=== PATIENT | female | born 1995 | race African-American/Black ===

== ENCOUNTER → 2017-03-29 | Outpatient (CLI) | payer OTHER ==
[~2017-03-29] MED LIST: GASTROGRAFIN SOLUTION 30ML (Q9963) As Ordered; ISOVUE-370 76% 100ML VIAL (Q9967) As Ordered
== END ==
LOC: M RAD 13:20
DX: R10.814 Left lower quadrant abdominal tenderness (principal)
CPT/HCPCS: Q9963

== ENCOUNTER 2017-05-08 06:41 | Day surgery (SDC) | payer OTHER ==
[2017-05-08] MEDS: NS 500 ML IV (06:57)
[2017-05-08] MEDS ORDERED: PROPOFOL 200 MG/20 ML VIAL As Ordered (07:36)
[2017-05-08] MEDS ORDERED: LIDOCAINE 2% INJ 100 MG/5 ML SDV (FOR ANES.) As Ordered (07:36)
== END 2017-05-08 08:48 | disposition home or self-care (01) ==
LOC: M OPP 06:41
DX: K62.5 Hemorrhage of anus and rectum (principal); R10.32 Left lower quadrant pain; D12.7 Benign neoplasm of rectosigmoid junction; K63.89 Other specified diseases of intestine; K52.89 Other specified noninfective gastroenteritis and colitis; D64.9 Anemia, unspecified; R06.02 Shortness of breath; Z88.0 Allergy status to penicillin
CPT/HCPCS: 45380

== ENCOUNTER → 2017-07-04 | Outpatient (CLI) | payer OTHER ==
[2017-07-04 16:44] LABS: BASO % 0.7 % (0.0-1.0); EOS # 0.1 10^3/uL (0.0-0.50); EOS % 1.4 % (0.0-3.0); HEMATOCRIT 30.9 % (36.0-47.0); HEMOGLOBIN 9.1 g/dl (12.0-15.5); IMMATURE GRANULOCYTE % 0.2 % (0-3.0); LYMPH # 2.1 10^3/uL (1.5-6.5); MEAN CORPUSCULAR HEMOGLOBIN 20.4 pg (27.0-33.0); MEAN CORPUSCULAR HGB CONC 29.4 g/dl (32.0-36.5); MEAN CORPUSCULAR VOLUME 69.3 fl (80.0-96.0); MONO # 0.4 10^3/uL (0.0-0.8); MONO % 9.6 % (0.0-5.0); NEUTROPHILS # 1.5 10^3/uL (1.8-7.7); NEUTROPHILS % 37.1 % (36.0-66.0); PLATELET COUNT, AUTOMATED 267 10^3/uL (150-450); RED BLOOD COUNT 4.46 10^6/uL (4.00-5.40); RED CELL DISTRIBUTION WIDTH 18.6 % (11.5-14.5); WHITE BLOOD COUNT 4.2 10^3/uL (4.0-10.0)
[2017-07-04 17:11] LABS: C REACTIVE PROTEIN QUANTITATIV < 0.30 MG/DL (0.00-0.30); FERRITIN 5 NG/ML (8-252); IRON (FE) 25 UG/DL (50-170); PERCENT SATURATION 5.4 % (13.2-45.0); TOTAL IRON BINDING CAPACITY 467 UG/DL (250-450)
[2017-07-04 17:58] LABS: ERYTHROCYTE SEDIMENTATION RATE 22 mm/hr (0-20)
[2017-07-11 00:07] LABS: ANTI-SACCHAROMYCES CEREV. IgA <20.0 Units (0.0-24.9); ANTI-SACCHAROMYCES CEREV. IgG <20.0 Units (0.0-24.9); CYTOPLASMIC NEUTROP AB ANCA-C <1:20 titer (Neg:<1:20); PERINUCLEAR AB ANCA-P <1:20 titer (Neg:<1:20)
== END ==
LOC: M LAB 16:01
DX: K51.811 Other ulcerative colitis with rectal bleeding (principal)
CPT/HCPCS: 83550

== ENCOUNTER → 2017-11-28 | Outpatient (REF) | payer OTHER | LOC: M SFHCLERA 20:21 | DX: R10.31 Right lower quadrant pain (principal) ==

== ENCOUNTER → 2017-11-28 | Outpatient (CLI) | payer OTHER | LOC: M LRY 16:30 | DX: K59.00 Constipation, unspecified (principal) | CPT/HCPCS: 74018; 87086 ==

== ENCOUNTER 2017-12-30 11:17 | Emergency (ER) | payer OTHER ==
[2017-12-30 12:07] LABS: BASO % 0.7 % (0.0-1.0); EOS # 0.1 10^3/uL (0.0-0.50); EOS % 1.5 % (0.0-3.0); HEMATOCRIT 31.6 % (36.0-47.0); HEMOGLOBIN 9.8 g/dl (12.0-15.5); IMMATURE GRANULOCYTE % 0.2 % (0-3.0); LYMPH # 1.8 10^3/uL (1.5-6.5); LYMPH % 39.6 % (24.0-44.0); MEAN CORPUSCULAR HEMOGLOBIN 22.9 pg (27.0-33.0); MEAN CORPUSCULAR VOLUME 73.8 fl (80.0-96.0); MONO # 0.4 10^3/uL (0.0-0.8); MONO % 8.8 % (0.0-5.0); NEUTROPHILS # 2.3 10^3/uL (1.8-7.7); NEUTROPHILS % 49.2 % (36.0-66.0); PLATELET COUNT, AUTOMATED 296 10^3/uL (150-450); RED BLOOD COUNT 4.28 10^6/uL (4.00-5.40); RED CELL DISTRIBUTION WIDTH 18.6 % (11.5-14.5); WHITE BLOOD COUNT 4.6 10^3/uL (4.0-10.0)
[2017-12-30 12:36] LABS: ALBUMIN 3.8 GM/DL (3.2-5.2); ALBUMIN/GLOBULIN RATIO 0.88 (1.00-1.93); ALKALINE PHOSPHATASE 53 U/L (45-117); ALT/SGPT 17 U/L (12-78); ANION GAP 7 MEQ/L (8-16); AST/SGOT 19 U/L (7-37); BILIRUBIN,TOTAL 0.5 MG/DL (0.2-1.0); BLOOD UREA NITROGEN 11 MG/DL (7-18); CALCIUM LEVEL 8.3 MG/DL (8.5-10.1); CARBON DIOXIDE LEVEL 23 MEQ/L (21-32); CHLORIDE LEVEL 108 MEQ/L (98-107); CREATININE FOR GFR 0.76 MG/DL (0.55-1.30); GLUCOSE, FASTING 88 MG/DL (70-100); POTASSIUM SERUM 3.8 MEQ/L (3.5-5.1); SODIUM LEVEL 138 MEQ/L (136-145); TOTAL PROTEIN 8.1 GM/DL (6.4-8.2)
[2017-12-30] MEDS: METOCLOPRAMIDE INJ 10MG/2ML VIAL (J2765) IV (12:37)
[2017-12-30] MEDS: NS 1,000 ML IV (12:38)
[2017-12-30 13:08] LABS: HCG, SERUM QUANTITATIVE 1055 MIU/ML
[2017-12-30 14:32] LABS: KETONE, URINE AUTO RFX NEGATIVE (NEGATIVE); LEUKOCYTE ESTERASE UR AUTO RFX NEGATIVE (NEGATIVE); MUCUS, URINE RFX SMALL (NEGATIVE); NITRITE, URINE AUTO RFX NEGATIVE (NEGATIVE); RBC, URINE AUTO RFX 0 /HPF (0-3); SPECIFIC GRAVITY UR AUTO RFX 1.027 (1.002-1.035); SQUAM EPITHELIAL CELL UR AURFX 2 /HPF (0-6); WBC, URINE AUTO RFX 0 /HPF (0-3)
== END 2017-12-30 15:09 | disposition home or self-care (01) ==
LOC: M ED 11:17
DX: Z32.01 Encounter for pregnancy test, result positive (principal); R10.2 Pelvic and perineal pain; N93.9 Abnormal uterine and vaginal bleeding, unspecified; K51.90 Ulcerative colitis, unspecified, without complications; Z88.0 Allergy status to penicillin; Z79.899 Other long term (current) drug therapy
CPT/HCPCS: J2765

== ENCOUNTER 2018-02-19 20:13 | Emergency (ER) | payer OTHER ==
[~2018-02-19] VITALS: Ht 167.6 cm; Wt 56.8 kg
[~2018-02-19 20:13] MED LIST changes: -GASTROGRAFIN SOLUTION 30ML (Q9963) As Ordered; -ISOVUE-370 76% 100ML VIAL (Q9967) As Ordered; +MACR100C43 PO; +MESA50SU PR; +REGL10TA6 PO
[2018-02-19] MEDS ORDERED: KETOROLAC 30 MG/ML VIAL (J1885) IV ONE (21:00)
[2018-02-19] MEDS ORDERED: NS 1,000 ML IV ONE (21:00)
[2018-02-19 21:35] LABS: BASO % 0.6 % (0.0-1.0); EOS # 0.2 10^3/uL (0.0-0.50); EOS % 2.7 % (0.0-3.0); HEMATOCRIT 32.9 % (36.0-47.0); HEMOGLOBIN 10.2 g/dl (12.0-15.5); LYMPH # 2.8 10^3/uL (1.5-6.5); LYMPH % 45.5 % (24.0-44.0); MEAN CORPUSCULAR HEMOGLOBIN 23.9 pg (27.0-33.0); MEAN CORPUSCULAR VOLUME 77.2 fl (80.0-96.0); MONO # 0.7 10^3/uL (0.0-0.8); MONO % 11.9 % (0.0-5.0); NEUTROPHILS # 2.4 10^3/uL (1.8-7.7); NEUTROPHILS % 39.1 % (36.0-66.0); PLATELET COUNT, AUTOMATED 270 10^3/uL (150-450); RED BLOOD COUNT 4.26 10^6/uL (4.00-5.40); WHITE BLOOD COUNT 6.2 10^3/uL (4.0-10.0)
[2018-02-19 21:59] LABS: ALBUMIN 3.7 GM/DL (3.2-5.2); ALT/SGPT 18 U/L (12-78); BILIRUBIN,DIRECT < 0.1 MG/DL (0.0-0.2); BILIRUBIN,TOTAL 0.3 MG/DL (0.2-1.0); BLOOD UREA NITROGEN 11 MG/DL (7-18); CARBON DIOXIDE LEVEL 25 MEQ/L (21-32); CHLORIDE LEVEL 108 MEQ/L (98-107); CREATININE FOR GFR 0.74 MG/DL (0.55-1.30); GLUCOSE, FASTING 88 MG/DL (70-100); LIPASE 120 U/L (73-393); POTASSIUM SERUM 4.1 MEQ/L (3.5-5.1); SODIUM LEVEL 140 MEQ/L (136-145); TOTAL PROTEIN 7.6 GM/DL (6.4-8.2)
[2018-02-19 22:17] LABS: HCG, SERUM QUALITATIVE POSITIVE (NEGATIVE)
[2018-02-20 00:01] VITALS: BP 122/63
--- NOTE | 2018-02-20 00:02 | REPVR ---
EXAM: US First Trimester, Transabdominal EXAM DATE/TIME: 02/19/2018 10:51 PM CLINICAL HISTORY: 22 years old, female; Pain; complicated by abdominal or pelvic pain; Generalized abdominal pain; First trimester; Gestational age or lmp: 4 w 2 d; ; Additional info: Vaginal bleeding, pelvic pain x 2-3 days, hcg 13 TECHNIQUE: Real-time transabdominal obstetrical ultrasound of the maternal pelvis and a first trimester , less than 14 weeks 0 days, with image documentation. COMPARISON: No relevant prior studies available. FINDINGS: GESTATION: See below. MATERNAL: Uterus: Uterus measures 7.7 x 4.2 x 4.6 cm. Endometrial echocomplex 10.1 mm. No gestational sac demonstrated. Cervix: Unremarkable. Right adnexa: Right ovary measures 4 point 2 x 2 0.7 x 2.3 cm. RI 0.59. 2.8 x 1.9 x 1.9 cm hemorrhagic cyst Left adnexa: Left ovary measures 3.1 x 1.9 x 2.1 cm. RI 0.56. Trace free fluid in the left adnexal region Intraperitoneal: No intraperitoneal free fluid. IMPRESSION: Empty uterus in a patient with a reportedly positive test. Finding may indicate very early IUP prior to visualization of a gestational sac or fetus. Correlation with serial beta-hCG levels and follow ultrasound recommended in order to exclude ectopic verses very early or early failure. Electronically signed by: Jg Baure On 02/20/2018 00:01:42 AM
== END 2018-02-20 00:05 | disposition home or self-care (01) ==
LOC: M ED 20:13
DX: Z32.01 Encounter for pregnancy test, result positive (principal); R10.31 Right lower quadrant pain; R10.32 Left lower quadrant pain; K51.90 Ulcerative colitis, unspecified, without complications; Z88.0 Allergy status to penicillin; Z79.899 Other long term (current) drug therapy
CPT/HCPCS: 76801; 76817; 80048; 80076; 81001; 83605; 83690; 84702; 84703; 85025; 93976; 96374; 99284; J1885

== ENCOUNTER → 2018-05-11 | Outpatient (CLI) | payer OTHER ==
[~2018-05-11] MED LIST changes: +COLA100C5 PO; +MESA800T PO
[2018-05-11 19:23] LABS: BASO % 0.5 % (0.0-1.0); EOS # 0.1 10^3/uL (0.0-0.50); EOS % 1.2 % (0.0-3.0); HEMATOCRIT 35.9 % (36.0-47.0); HEMOGLOBIN 10.9 g/dl (12.0-15.5); LYMPH # 1.8 10^3/uL (1.5-6.5); LYMPH % 43.7 % (24.0-44.0); MEAN CORPUSCULAR HEMOGLOBIN 23.8 pg (27.0-33.0); MEAN CORPUSCULAR HGB CONC 30.4 g/dl (32.0-36.5); MEAN CORPUSCULAR VOLUME 78.4 fl (80.0-96.0); MONO # 0.4 10^3/uL (0.0-0.8); MONO % 10.2 % (0.0-5.0); NEUTROPHILS # 1.8 10^3/uL (1.8-7.7); NEUTROPHILS % 44.2 % (36.0-66.0); PLATELET COUNT, AUTOMATED 299 10^3/uL (150-450); RED BLOOD COUNT 4.58 10^6/uL (4.00-5.40); WHITE BLOOD COUNT 4.1 10^3/uL (4.0-10.0)
[2018-05-11 19:32] LABS: C REACTIVE PROTEIN QUANTITATIV < 0.30 MG/DL (0.00-0.30); FERRITIN 7 NG/ML (8-252); IRON (FE) 37 UG/DL (50-170); PERCENT SATURATION 8.4 % (13.2-45.0); TOTAL IRON BINDING CAPACITY 438 UG/DL (250-450)
[2018-05-11 19:49] LABS: ERYTHROCYTE SEDIMENTATION RATE 9 mm/hr (0-20)
[2018-05-16 00:08] LABS: ANTI-PARIETAL CELL ANTIBODY 17.9 Units (0.0-20.0); INTRINSIC FACTOR ANTIBODY 1.1 AU/mL (0.0-1.1)
== END ==
LOC: M LRY 13:35
PROVIDERS: ATTEND Internal Medicine Gastroenterology
DX: K51.811 Other ulcerative colitis with rectal bleeding (principal)

== ENCOUNTER → 2018-05-13 | Day surgery (SDC) | payer OTHER ==
[~2018-05-13] VITALS: Ht 167.6 cm; Wt 62.6 kg
[~2018-05-13] MED LIST changes: +LIDOCAINE 2% INJ 100 MG/5 ML SDV (FOR ANES.) As Ordered ONE; +NS 1,000 ML IV ONE; +PROPOFOL 200 MG/20 ML VIAL As Ordered ONE
--- NOTE | 2018-05-13 15:11 | ROOR ---
Patient Name: Dorene Whelan Procedure Date: 05/13/2018 2:28 PM Date of : 1995 Age: 22 Room: [facility] Gender: Female Note Status: Finalized Procedure: Upper GI endoscopy Indications: Iron deficiency anemia Providers: Nathan Bernardo MD Referring MD: Ana María Quiroz Requesting Provider: Medicines: Monitored Anesthesia Care Complications: No immediate complications. Procedure: Pre-Anesthesia Assessment: - Prior to the procedure, a History and Physical was performed, and patient medications and allergies were reviewed. The patient is competent. The risks and benefits of the procedure and the sedation options and risks were discussed with the patient. All questions were answered and informed consent was obtained. Patient identification and proposed procedure were verified by the physician, the nurse and the anesthesiologist in the procedure room. Mental Status Examination: normal. Airway Examination: normal oropharyngeal airway and neck mobility. Respiratory Examination: clear to auscultation. CV Examination: normal. Prophylactic Antibiotics: The patient does not require prophylactic antibiotics. Prior Anticoagulants: The patient has taken no previous anticoagulant or antiplatelet agents. ASA Grade Assessment: II - A patient with mild systemic disease. After reviewing the risks and benefits, the patient was deemed in satisfactory condition to undergo the procedure. The anesthesia plan was to use monitored anesthesia care (MAC). Immediately prior to administration of medications, the patient was re-assessed for adequacy to receive sedatives. The heart rate, respiratory rate, oxygen saturations, blood pressure, adequacy of pulmonary ventilation, and response to care were monitored throughout the procedure. The physical status of the patient was re-assessed after the procedure. The Endoscope was introduced through the mouth, and advanced to the second part of duodenum. The upper GI endoscopy was accomplished without difficulty. The patient tolerated the procedure well. Findings: The Z-line was regular and was found 40 cm from the incisors. Patchy mild inflammation characterized by erythema and granularity was found in the gastric antrum. Biopsies were taken with a cold forceps for Helicobacter pylori testing. Verification of patient identification for the specimen was done by the physician and nurse using the patient's name, date and medical record number. Estimated blood loss was minimal. The duodenal bulb and second portion of the duodenum were normal. Biopsies for histology were taken with a cold forceps for evaluation of celiac disease. Impression: - Z-line regular, 40 cm from the incisors. - Gastritis. Biopsied. - Normal duodenal bulb and second portion of the duodenum. Biopsied. Recommendation: - Patient has a contact number available for emergencies. The signs and symptoms of potential delayed complications were discussed with the patient. Return to normal activities tomorrow. Written discharge instructions were provided to the patient. - Resume previous diet. - Continue present medications. - Await pathology results. - Based on the biopsy results you will receive a phone call from GI clinic in 2-3 weeks to review the pathology results AND/OR your results will be faxed to your Primary care physician. - Return to primary care physician. Nathan Bernardo MD Nathan Bernardo MD 05/13/2018 3:10:50 PM This report has been signed electronically. Number of Addenda: 0 Note Initiated On: 05/13/2018 2:28 PM Estimated Blood Loss: Estimated blood loss was minimal.
--- NOTE | 2018-05-13 15:22 | ROOR ---
Patient Name: Dorene Whelan Procedure Date: 05/13/2018 2:29 PM Date of : 1995 Age: 22 Room: [facility] Gender: Female Note Status: Finalized Procedure: Colonoscopy Indications: Iron deficiency anemia Providers: Nathan Bernardo MD Referring MD: Ana María Quiroz Requesting Provider: Medicines: Monitored Anesthesia Care Complications: No immediate complications. Procedure: Pre-Anesthesia Assessment: - Prior to the procedure, a History and Physical was performed, and patient medications and allergies were reviewed. The patient is competent. The risks and benefits of the procedure and the sedation options and risks were discussed with the patient. All questions were answered and informed consent was obtained. Patient identification and proposed procedure were verified by the physician, the nurse and the anesthesiologist in the procedure room. Mental Status Examination: alert and oriented. Airway Examination: normal oropharyngeal airway and neck mobility. Respiratory Examination: clear to auscultation. CV Examination: normal. Prophylactic Antibiotics: The patient does not require prophylactic antibiotics. Prior Anticoagulants: The patient has taken no previous anticoagulant or antiplatelet agents. ASA Grade Assessment: II - A patient with mild systemic disease. After reviewing the risks and benefits, the patient was deemed in satisfactory condition to undergo the procedure. The anesthesia plan was to use monitored anesthesia care (MAC). Immediately prior to administration of medications, the patient was re-assessed for adequacy to receive sedatives. The heart rate, respiratory rate, oxygen saturations, blood pressure, adequacy of pulmonary ventilation, and response to care were monitored throughout the procedure. The physical status of the patient was re-assessed after the procedure. The Colonoscope was introduced through the anus and advanced to the terminal ileum, with identification of the appendiceal orifice and IC valve. The colonoscopy was performed without difficulty. The patient tolerated the procedure well. The quality of the bowel preparation was good. The terminal ileum, ileocecal valve, appendiceal orifice, and rectum were photographed. Scope insertion time was 3 minutes. Scope withdrawal time was 9 minutes. The total duration of the procedure was 12 minutes. Findings: The perianal and digital rectal examinations were normal. The terminal ileum appeared normal. Scattered mild inflammation characterized by congestion (edema) and erythema was found in the recto-sigmoid colon. Biopsies were taken with a cold forceps for histology. Verification of patient identification for the specimen was done by the physician and nurse using the patient's name, date and medical record number. Estimated blood loss was minimal. Normal mucosa was found from sigmoid to cecum. Impression: - The examined portion of the ileum was normal. - Scattered mild inflammation was found in the recto-sigmoid colon secondary to proctitis. Biopsied. - Normal mucosa from sigmoid to cecum. Recommendation: - Patient has a contact number available for emergencies. The signs and symptoms of potential delayed complications were discussed with the patient. Return to normal activities tomorrow. Written discharge instructions were provided to the patient. - Resume previous diet. - Continue present medications. - Await pathology results. - Repeat colonoscopy at age 52 for screening purposes. - Based on the biopsy results you will receive a phone call from GI clinic in 2-3 weeks to review the pathology results AND/OR your results will be faxed to your Primary care physician. - Return to primary care physician. Nathan Bernardo MD Nathan Bernardo MD 05/13/2018 3:21:31 PM This report has been signed electronically. Number of Addenda: 0 Note Initiated On: 05/13/2018 2:29 PM Estimated Blood Loss: Estimated blood loss was minimal.
[2018-05-13 15:30] VITALS: BP 114/64
== END | disposition home or self-care (01) ==
LOC: M OPP 10:52
PROVIDERS: ATTEND Internal Medicine Gastroenterology
DX: K29.70 Gastritis, unspecified, without bleeding (principal); K62.89 Other specified diseases of anus and rectum; D50.9 Iron deficiency anemia, unspecified; Z88.0 Allergy status to penicillin

== ENCOUNTER → 2018-08-28 | Outpatient (CLI) | payer OTHER ==
[~2018-08-28] MED LIST changes: -LIDOCAINE 2% INJ 100 MG/5 ML SDV (FOR ANES.) As Ordered ONE; -MESA800T PO; +MESA800T8 PO; -NS 1,000 ML IV ONE; -PROPOFOL 200 MG/20 ML VIAL As Ordered ONE
[2018-08-28 21:01] LABS: BASO % 0.4 % (0.0-1.0); EOS # 0.1 10^3/uL (0.0-0.50); EOS % 2.5 % (0.0-3.0); HEMATOCRIT 39.6 % (36.0-47.0); HEMOGLOBIN 12.5 g/dl (12.0-15.5); LYMPH # 2.1 10^3/uL (1.5-6.5); LYMPH % 46.4 % (24.0-44.0); MEAN CORPUSCULAR HEMOGLOBIN 27.6 pg (27.0-33.0); MEAN CORPUSCULAR HGB CONC 31.6 g/dl (32.0-36.5); MEAN CORPUSCULAR VOLUME 87.4 fl (80.0-96.0); MONO # 0.4 10^3/uL (0.0-0.8); MONO % 9.6 % (0.0-5.0); NEUTROPHILS # 1.8 10^3/uL (1.8-7.7); NEUTROPHILS % 40.9 % (36.0-66.0); PLATELET COUNT, AUTOMATED 280 10^3/uL (150-450); RED BLOOD COUNT 4.53 10^6/uL (4.00-5.40); WHITE BLOOD COUNT 4.5 10^3/uL (4.0-10.0)
[2018-08-28 21:08] LABS: PERCENT SATURATION 13.1 % (13.2-45.0)
[2018-08-28 21:13] LABS: FOLATE 22.7 NG/ML
== END ==
LOC: M LAB 08:00
PROVIDERS: ATTEND Internal Medicine Gastroenterology
DX: D50.9 Iron deficiency anemia, unspecified (principal)